=== PATIENT | female | born 1975 | race Caucasian/White ===

== ENCOUNTER 2025-04-18 21:45 | Inpatient (IN) ==
--- NOTE | 2025-04-18 22:03 | Emergency Department Note ---
History of Present Illness General Chief complaint: Abdominal Pain Stated complaint: ABDOMINAL PAIN Time Seen by Provider: 04/18/25 21:52 History of Present Illness Maximum Pain Intensity: 9 This is a 49-year-old female presenting to the emergency department for evaluation of upper abdominal pain radiating into her back. The pain is primarily on the right side and began shortly after having dinner this evening. 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 She had steak, corn, and baked beans. She began having pain within 30 minutes and rates the discomfort at 9/10. She does not have a history of abdominal surgery. No fevers or chills. No chest pain, chest tightness, shortness of breath. She denies chance of . Home Medications Medication Instructions Recorded Confirmed Type Lactobacillus acidophilus 10 10,000 mmu cells PO DAILY 04/18/25 04/18/25 History billion cell capsule (Probiotic) aspirin 81 mg tablet,delayed 81 mg PO DAILY 04/18/25 04/18/25 History release ferrous sulfate 325 mg (65 mg 325 mg PO DAILY 04/18/25 04/18/25 History iron) tablet (iron) sertraline 50 mg tablet 50 mg PO DAILY 04/18/25 04/18/25 History Allergies Allergy/AdvReac Type Severity Reaction Status Date / Time No Known Allergies Allergy Unknown Verified 04/18/25 22:57 Past Med/Surg History Problem List (Updated 04/19/25 @ 11:25 by Brie Vickers PA-C) Abdominal pain (Acute) SBO (small bowel obstruction) (Acute) No chronic diseases present History of DVT (deep vein thrombosis) Medical History (Updated 04/19/25 @ 11:25 by Brie Vickers PA-C) 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 Social History Smoking Status: Current some day smoker Tobacco Type: Cigarettes Preferred Language: Faroese Feels Safe at Home: Yes Review of Systems A total of 10 systems reviewed and were otherwise negative Physical Exam Vital Signs Vital Signs - 24 hr 04/18/25 21:46 04/18/25 21:48 04/18/25 21:57 Temperature 36.6 C Temperature Source Temporal Artery Scan Pulse Rate 113 H Pulse Rate [Right Brachial] 100 H Pulse Rhythm Regular Pulse Rhythm [Right Brachial] Regular Pulse Strength Normal Pulse Strength [Right Brachial] Normal Respiratory Rate 19 18 Respiratory Effort / Characteristics Non-Labored Non-Labored Spontaneous Respiratory Depth Normal Normal Respiratory Pattern Regular Regular Blood Pressure 114/69 Blood Pressure [Right Arm] 127/81 Blood Pressure Mean 84 Blood Pressure Mean [Right Arm] 96 Blood Pressure Position Sitting Blood Pressure Position [Right Arm] Lying Pulse Oximetry 98 100 95 Oxygen Delivery Method Room Air Room Air Room Air Sepsis Recent Fever Within 48 Hours No Sepsis New/Unexplained Change in Mental Status N/A Sepsis Action Taken by Nursing No Action Required 04/18/25 22:03 04/19/25 01:50 04/19/25 03:06 Temperature Temperature Source Pulse Rate 101 H Pulse Rate [Right Brachial] 99 H 76 Pulse Rhythm Pulse Rhythm [Right Brachial] Regular Regular Pulse Strength Pulse Strength [Right Brachial] Normal Normal Respiratory Rate 18 18 Respiratory Effort / Characteristics Non-Labored Spontaneous Non-Labored Spontaneous Respiratory Depth Normal Normal Respiratory Pattern Blood Pressure Blood Pressure [Right Arm] 118/64 94/56 L Blood Pressure Mean Blood Pressure Mean [Right Arm] 82 68 Blood Pressure Position Blood Pressure Position [Right Arm] Pulse Oximetry 100 100 Oxygen Delivery Method Room Air Room Air Sepsis Recent Fever Within 48 Hours Sepsis New/Unexplained Change in Mental Status Sepsis Action Taken by Nursing VITALS: Vitals are noted on the nurse's note and reviewed by myself. Vital signs stable. GENERAL: Well-developed, well-nourished, white female who is pleasant but appears very uncomfortable. She is tearful and holding her right side abdomen with her right hand. HEAD: Normocephalic atraumatic. NECK: Supple without nuchal rigidity. No lymphadenopathy. No thyromegaly. Cervical spine is nontender. HEART: Regular rate and rhythm without murmurs gallops or rubs. LUNGS: Clear to auscultation bilaterally without wheezes, rales or rhonchi. No retractions or accessory muscle use. ABDOMEN: Positive normal bowel sounds x 4. Soft, with reproducible tenderness to the right mid abdomen. No rebound or guarding. No CVA tenderness. MUSCULOSKELETAL: No muscle atrophy, erythema, or edema noted. Full range of motion in all extremities. No tenderness to palpation. NEURO: Patient was alert and oriented to person place and time. CN II through XII grossly intact. No focal neurological deficits. GCS 15. SKIN: The skin was without rashes, erythema, edema, or bruising. Capillary refill less than 2 seconds. Course Administered Medications Aspirin (Aspirin 81 Mg Ectab) 81 mg PO DAILY [facility] Stop: 05/19/25 09:24 Last Admin: 04/19/25 10:55 Dose: 81 mg Documented By: OUSMANE Enoxaparin Sodium (Enoxaparin Inj 40 Mg/0.4 Ml Syr) 40 mg SQ Q24H NEFTALI Stop: 05/19/25 09:24 Last Admin: 04/19/25 10:55 Dose: 40 mg Documented By: OUSMANE Ferrous Sulfate (Ferrous Sulfate 325 Mg Tab) 325 mg PO DAILY [facility] Stop: 05/19/25 09:38 Last Admin: 04/19/25 10:54 Dose: 325 mg Documented By: OUSMANE Lactated Ringer's (Lr) 1,000 mls @ 125 mls/hr IV .Q8H NEFTALI Stop: 04/22/25 09:24 Last Admin: 04/19/25 13:16 Dose: 125 mls/hr Documented By: SARA Acetaminophen (Ofirmev) 1,000 mg in 100 mls @ 400 mls/hr IV Q8H PRN PRN Reason: Pain or Fever Stop: 04/22/25 09:24 Last Infusion: 04/19/25 13:32 Dose: Infused Documented By: Admin: 04/19/25 13:17 Dose: 400 mls/hr Documented By: SARA Sertraline HCl (Sertraline Hcl 50 Mg Tablet) 50 mg PO DAILY [facility] Stop: 05/19/25 09:24 Last Admin: 04/19/25 10:55 Dose: 50 mg Documented By: OUSMANE Discontinued Medications Sodium Chloride (Nss) 1,000 mls @ 999 mls/hr IV .Q1H1M ONE Stop: 04/18/25 22:57 Last Infusion: 04/19/25 00:06 Dose: Infused Documented By: Admin: 04/18/25 22:32 Dose: 999 mls/hr Documented By: RADHA Acetaminophen (Ofirmev) 1,000 mg in 100 mls @ 400 mls/hr IV NOW STA Stop: 04/18/25 22:11 Last Infusion: 04/18/25 22:59 Dose: Infused Documented By: Admin: 04/18/25 22:32 Dose: 400 mls/hr Documented By: RADHA Potassium Chloride (K Faraz / Wtr) 10 meq in 100 mls @ 100 mls/hr IV Q1H NEFTALI Stop: 04/19/25 07:14 Last Infusion: 04/19/25 08:48 Dose: Infused Documented By: Admin: 04/19/25 07:38 Dose: 100 mls/hr Documented By: Infusion: 04/19/25 07:24 Dose: Infused Documented By: Admin: 04/19/25 06:19 Dose: 100 mls/hr Documented By: Infusion: 04/19/25 06:19 Dose: Infused Documented By: Admin: 04/19/25 05:26 Dose: 100 mls/hr Documented By: SELINA Promethazine HCl (Phenergan) 12.5 mg in 50.5 mls @ 202 mls/hr IV NOW STA Stop: 04/19/25 07:57 Last Infusion: 04/19/25 08:32 Dose: Infused Documented By: Admin: 04/19/25 07:53 Dose: 202 mls/hr Documented By: OUSMANE Ioversol (Optiray 320 100ml) 93 ml IV ONCE ONE Stop: 04/18/25 22:30 Last Admin: 04/18/25 22:29 Dose: 93 ml Documented By: KELVIN Morphine Sulfate (Morphine Sulfate 4 Mg/Ml 1 Ml Carp\Vial) 4 mg IV Q30M PRN PRN Reason: Pain Stop: 05/02/25 21:56 Last Admin: 04/19/25 07:56 Dose: 4 mg Documented By: Admin: 04/18/25 22:08 Dose: 4 mg Documented By: RADHA Ondansetron HCl (Ondansetron Inj 2 Mg/Ml 2 Ml Vial) 4 mg IV NOW STA Stop: 04/18/25 21:58 Last Admin: 04/18/25 22:08 Dose: 4 mg Documented By: RADHA Medical Decision Making Differential Diagnosis Differential diagnosis: Etiologies such as biliary colic, cholecystitis, hepatitis, pancreatitis, cardiac disease, pancreatitis, gastritis, peptic ulcer disease, appendicitis, cystitis, diverticulitis, mesenteric ischemia, inflammatory bowel disease, ileus, bowel obstruction, testicular/adnexal torsion, aortic pathology, shingles, as well as others were considered Laboratory Data 04/19/25 09:54 04/19/25 09:54 Lab Results 04/18/25 Range/Units 22:04 WBC 9.99 (4.8-10.8) K/ul RBC 4.57 (4.20-5.40) M/uL Hgb 13.4 (12.0-16.0) g/dl Hct 40.2 (37.0-47.0) % MCV 88.0 (80.0-100.0) fL MCH 29.3 (25.0-34.0) pg MCHC 33.3 (32.0-36.0) g/dL RDW Std Deviation 40.1 (36.4-46.3) fL RDW Coeff of Lupe 12.4 (11.5-14.5) % Plt Count 320 (130-400) K/uL MPV 9.5 (9.4-12.4) fL Immature Gran % (Auto) 0.3 % Neut % (Auto) 85.0 % Lymph % (Auto) 9.6 % [place] % (Auto) 4.6 % Eos % (Auto) 0.3 % Baso % (Auto) 0.2 % Neut # (Auto) 8.49 H (1.40-6.50) K/uL Lymph # (Auto) 0.96 L (1.20-3.40) K/uL [place] # (Auto) 0.46 (0.11-0.59) K/uL Eos # (Auto) 0.03 (0.00-0.50) K/uL Baso # (Auto) 0.02 (0.00-0.20) K/uL Immature Gran # (Auto) 0.03 (0.01-0.20) K/uL PT 10.3 (9.0-12.0) Seconds INR 0.9 (0.9-1.1) APTT 26 (21-31) Seconds PTT Ratio 1.0 Sodium 137 (136-145) mmol/L Potassium 3.3 L (3.5-5.1) mmol/L Chloride 103 (98-107) mmol/L Carbon Dioxide 26 (21-32) mmol/L Anion Gap 8 (3-11) BUN 17 (6-23) mg/dl Creatinine 0.74 (0.6-1.2) mg/dl Est Cr Clr Drug Dosing 83.5 ml/min eGFR 100.36 BUN/Creatinine Ratio 23.0 H (10-20) Glucose 122 H (70-99(Fasting)) mg/dl Calcium 9.3 (8.6-10.3) mg/dl Magnesium 2.0 (1.7-2.4) mg/dl Total Bilirubin 0.8 (0.2-1.0) mg/dl AST 20 (13-39) U/L ALT 10 (7-52) U/L Alkaline Phosphatase 73 (34-104) U/L Troponin I High Sens < 2.3 (0-14) pg/ml Total Protein 7.6 (6.0-8.3) gm/dl Albumin 4.6 (3.4-5.0) gm/dl Globulin 3.0 (2.5-4.0) gm/dl Albumin/Globulin Ratio 1.5 (0.9-2) Lipase 20 (11-82) U/L HCG, Qual Negative (Negative) Imaging Data Radiologist's Impression: Abdomen/Pelvis CT 04/18/25 21:57 Exam(s): CT ABDOMEN + PELVIS With Contrast IV Amt: 93 cc opti 320 EXAM: CT Abdomen and Pelvis With Intravenous Contrast CLINICAL HISTORY: right side abdominal pain. TECHNIQUE: Axial computed tomography images of the abdomen and pelvis with intravenous contrast. CTDI is 9.03 mGy and DLP is 432.21 mGy-cm. Automated exposure control was utilized for the study. A dose lowering technique was utilized adhering to the principles of ALARA. CONTRAST: Patient received 93 cc opti 320 of IV contrast COMPARISON: No relevant prior studies available. FINDINGS: Lung bases: Unremarkable. No mass. No consolidation. ABDOMEN: Liver: Unremarkable. No mass. Gallbladder and bile ducts: Unremarkable. No calcified stones. No ductal dilation. Pancreas: Unremarkable. No mass. No ductal dilation. Spleen: Unremarkable. No splenomegaly. Adrenals: Unremarkable. No mass. Kidneys and ureters: Unremarkable. No solid mass. No hydronephrosis. Stomach and bowel: Abnormal fluid and gas dilated small bowel loops in the pelvis, with subtle kinking around the central location within the midline pelvis (series 2; images 62-65). Prominent stool burden in the right colon. Only mild stool burden in the left colon. PELVIS: Appendix: The appendix is normal in caliber posterior to the cecum. Bladder: Unremarkable. No mass. Reproductive: There are multiple adnexal cysts noted bilaterally. The largest adnexal cyst on the left measures 3.6 x 3.7 cm. ABDOMEN and PELVIS: Intraperitoneal space: Free fluid in the pelvis is noted. No loculation. No free air. Bones/joints: No acute fracture. No dislocation. Soft tissues: Unremarkable. Vasculature: There is long segment venous stents extending throughout the iliac arteries, into the IVC and a kissing fashion. There is also a stent from the infrarenal IVC through the kissing stents. The aorta and iliac arteries are patent. No abdominal aortic aneurysm. Lymph nodes: Unremarkable. No enlarged lymph nodes. IMPRESSION: 1. Abnormal fluid and gas dilated small bowel loops in the pelvis, with subtle kinking around the central location within the midline pelvis (series 2; images 62-65). The appearance is concerning for distal small bowel obstruction, presumably from adhesions or a potential internal hernia. No pneumatosis or pneumoperitoneum. 2. Free fluid in the pelvis is noted. No loculation. This is presumably reactive from the small bowel process. 3. There are multiple adnexal cysts noted bilaterally. The largest adnexal cyst on the left measures 3.6 x 3.7 cm. This is a presumed incidental finding. Electronically signed by: Jonas Murcia MD 04/18/25 23:54 PM Gallbladder Ultrasound 04/18/25 21:57 Exam(s): US GALLBLADDER EXAM: US Abdomen Limited, Gallbladder CLINICAL HISTORY: upper and RUQ pain. TECHNIQUE: Real-time ultrasound of the right upper quadrant with image documentation. COMPARISON: CTA abdomen and pelvis with contrast performed 1022 hours FINDINGS: Liver: Trace perihepatic fluid. Incidental simple cyst involving the left lobe of the liver measuring six mm. No internal architecture. The liver is slightly hyperechoic. The liver measures 14.8 cm. The portal vein is patent with flow directed towards the liver. Gallbladder: Minimal echogenic sludge noted in the gallbladder. No gallstones. The gallbladder wall measures up to 1.9 mm. Evaluation for sonographic Mullins's sign is not possible secondary to reported medication status. Common bile duct: The common bile duct measures 3 mm. No stones. No dilation. Pancreas: Unremarkable as visualized. Right kidney: Right renal pelviectasis. No nephrolithiasis or hydronephrosis. IMPRESSION: 1. Trace perihepatic fluid. Please see the CT report of the abdomen performed earlier for further details. 2. Trace sludge in the gallbladder. No gallstones. No gallbladder wall thickening. Pericholecystic fluid is presumed extension from regional perihepatic fluid. No biliary dilatation. Electronically signed by: Jonas Murcia MD 04/19/25 00:06 AM MDM Narrative Physical exam and history were performed. Nursing notes, EMR, and Medication List were personally reviewed. No social concerns were identified as barriers to patients care. History was provided by the Patient and who is at bedside. Patient appears to have abdominal pain bringing her to the ER. Symptoms have been ongoing for about 2-1/2 hours. She is primarily with right-sided discomfort. She appears very uncomfortable. IV access was established and labs were obtained. She was hydrated normal saline and given IV Tylenol and IV morphine for pain control, and IV Zofran for nausea. Patient was sent to CT scan and ultrasound for further evaluation of symptoms. Patient's blood work is as above and was reviewed. She does not have a significant elevated white blood cell count, gross anemia, bandemia, or significant electrolyte imbalance. Lipase and transaminases not diagnostic. Magnesium normal. CT scan and ultrasound were independently reviewed by myself and radiology. Ultrasound does not show distinct biliary etiology of her symptoms. CT is more concerning, as it seems to reveal a small bowel obstruction. Escalation of care was considered, and felt to be necessary. On reevaluation the patient's pain is much better and she seems much more comfortable. Case was discussed with the on-call hospitalist team, who agreed to evaluate the patient here in the ER. Please see their dictation for further patient course, plan, disposition. The chart was completed utilizing [employer] Speech Voice Recognition Software. Grammatical errors, random word insertions, pronoun errors, and incomplete sentences are an occasional consequence of this system due to software limitations, ambient noise, and hardware issues. Any formal questions or concerns about the content, text, or information contained within the body of this dictation should be directly addressed to the provider for clarification. Impression & Plan SBO (small bowel obstruction), Abdominal pain Discharge Plan Visit Data Chief Complaint: Abdominal Pain Stated Complaint: ABDOMINAL PAIN ED Provider: Mark Larsen ED Midlevel Provider: Pratik Stone Discharge Problem: SBO (small bowel obstruction), Abdominal pain Patient Disposition: Admitted As Inpatient Condition: Good Discharge Instructions Interventions: ED Discharge Assessment Last Done: 04/19/25 13:31
[2025-04-18] MEDS: MoRPHine SULFATE 4 MG/ML 1 ML CARP\\VIAL IV PRN (22:08)
[2025-04-18] MEDS: ONDANSETRON INJ 2 MG/ML 2 ML VIAL IV STA (22:08)
[2025-04-18 22:16] LABS: Hematocrit (blood only) 40.2 % (37.0-47.0); Hemoglobin 13.4 g/dl (12.0-16.0); Immature Granulocytes # (auto) 0.03 K/uL (0.01-0.20); Immature Granulocytes % (auto) 0.3 %; Mean Corpuscular Hemoglobin 29.3 pg (25.0-34.0); Mean Corpuscular Volume 88.0 fL (80.0-100.0); Platelet Count 320 K/uL (130-400); RDW Standard Deviation 40.1 fL (36.4-46.3); Red Blood Count 4.57 M/uL (4.20-5.40); White Blood Count 9.99 K/ul (4.8-10.8)
[2025-04-18] MEDS: OPTIRAY 320 100ml IV ONE (22:29)
[2025-04-18] MEDS: ACETAMINOPHEN 1,000 MG/100 ML VIAL IV STA (22:32)
[2025-04-18] MEDS: SODIUM CHLORIDE 0.9% 1,000 ML IV ONE (22:32)
[2025-04-18 22:36] LABS: Alanine Aminotransferase 10 U/L (7-52); Albumin Globulin Ratio 1.5 (0.9-2); Alkaline Phosphatase 73 U/L (34-104); Anion Gap 8 (3-11); Bilirubin,Total 0.8 mg/dl (0.2-1.0); Blood Urea Nitrogen 17 mg/dl (6-23); Calcium 9.3 mg/dl (8.6-10.3); Carbon Dioxide 26 mmol/L (21-32); Chloride 103 mmol/L (98-107); Creatinine Clr Calc Pharmacy 83.5 ml/min; Globulin 3.0 gm/dl (2.5-4.0); Glucose 122 mg/dl (70-99(Fasting)); Lipase 20 U/L (11-82); Magnesium 2.0 mg/dl (1.7-2.4); Potassium 3.3 mmol/L (3.5-5.1); Sodium 137 mmol/L (136-145); Total Protein 7.6 gm/dl (6.0-8.3)
[2025-04-18 22:50] LABS: Pregnancy Test, Serum Negative (Negative)
[2025-04-18 23:25] LABS: INR 0.9 (0.9-1.1); Partial Thromboplastin Time 26 Seconds (21-31); Prothrombin Time 10.3 Seconds (9.0-12.0)
--- NOTE | 2025-04-18 23:55 | CT Scan Report ---
Exam(s): CT ABDOMEN + PELVIS With Contrast IV Amt: 93 cc opti 320 EXAM: CT Abdomen and Pelvis With Intravenous Contrast CLINICAL HISTORY: right side abdominal pain. TECHNIQUE: Axial computed tomography images of the abdomen and pelvis with intravenous contrast. CTDI is 9.03 mGy and DLP is 432.21 mGy-cm. Automated exposure control was utilized for the study. A dose lowering technique was utilized adhering to the principles of ALARA. CONTRAST: Patient received 93 cc opti 320 of IV contrast COMPARISON: No relevant prior studies available. FINDINGS: Lung bases: Unremarkable. No mass. No consolidation. ABDOMEN: Liver: Unremarkable. No mass. Gallbladder and bile ducts: Unremarkable. No calcified stones. No ductal dilation. Pancreas: Unremarkable. No mass. No ductal dilation. Spleen: Unremarkable. No splenomegaly. Adrenals: Unremarkable. No mass. Kidneys and ureters: Unremarkable. No solid mass. No hydronephrosis. Stomach and bowel: Abnormal fluid and gas dilated small bowel loops in the pelvis, with subtle kinking around the central location within the midline pelvis (series 2; images 62-65). Prominent stool burden in the right colon. Only mild stool burden in the left colon. PELVIS: Appendix: The appendix is normal in caliber posterior to the cecum. Bladder: Unremarkable. No mass. Reproductive: There are multiple adnexal cysts noted bilaterally. The largest adnexal cyst on the left measures 3.6 x 3.7 cm. ABDOMEN and PELVIS: Intraperitoneal space: Free fluid in the pelvis is noted. No loculation. No free air. Bones/joints: No acute fracture. No dislocation. Soft tissues: Unremarkable. Vasculature: There is long segment venous stents extending throughout the iliac arteries, into the IVC and a kissing fashion. There is also a stent from the infrarenal IVC through the kissing stents. The aorta and iliac arteries are patent. No abdominal aortic aneurysm. Lymph nodes: Unremarkable. No enlarged lymph nodes. IMPRESSION: 1. Abnormal fluid and gas dilated small bowel loops in the pelvis, with subtle kinking around the central location within the midline pelvis (series 2; images 62-65). The appearance is concerning for distal small bowel obstruction, presumably from adhesions or a potential internal hernia. No pneumatosis or pneumoperitoneum. 2. Free fluid in the pelvis is noted. No loculation. This is presumably reactive from the small bowel process. 3. There are multiple adnexal cysts noted bilaterally. The largest adnexal cyst on the left measures 3.6 x 3.7 cm. This is a presumed incidental finding. Electronically signed by: Jonas Murcia MD 04/18/25 23:54 PM
--- NOTE | 2025-04-19 00:07 | Ultrasound Report ---
Exam(s): US GALLBLADDER EXAM: US Abdomen Limited, Gallbladder CLINICAL HISTORY: upper and RUQ pain. TECHNIQUE: Real-time ultrasound of the right upper quadrant with image documentation. COMPARISON: CTA abdomen and pelvis with contrast performed 1022 hours FINDINGS: Liver: Trace perihepatic fluid. Incidental simple cyst involving the left lobe of the liver measuring six mm. No internal architecture. The liver is slightly hyperechoic. The liver measures 14.8 cm. The portal vein is patent with flow directed towards the liver. Gallbladder: Minimal echogenic sludge noted in the gallbladder. No gallstones. The gallbladder wall measures up to 1.9 mm. Evaluation for sonographic Mullins's sign is not possible secondary to reported medication status. Common bile duct: The common bile duct measures 3 mm. No stones. No dilation. Pancreas: Unremarkable as visualized. Right kidney: Right renal pelviectasis. No nephrolithiasis or hydronephrosis. IMPRESSION: 1. Trace perihepatic fluid. Please see the CT report of the abdomen performed earlier for further details. 2. Trace sludge in the gallbladder. No gallstones. No gallbladder wall thickening. Pericholecystic fluid is presumed extension from regional perihepatic fluid. No biliary dilatation. Electronically signed by: Jonas Murcia MD 04/19/25 00:06 AM
--- NOTE | 2025-04-19 04:59 | History & Physical Report ---
Date of Service April 19, 2025 Assessment & Plan (1) SBO (small bowel obstruction): Plan: 49-year-old female with past medical history significant for anxiety history of DVT, history of IVC thrombosis, history of depression presents with abdominal pain since yesterday evening and found to have bowel obstruction. Patient states since yesterday evening having severe abdominal pain all over the abdomen. Associated with nausea. Denies any vomiting. Last bowel movement was couple of days ago. But states passing gas. Denies any chest pain or shortness of breath. No cough. No fevers. No headache. No runny nose or sore throat. Micturating okay. Hemodynamics okay. 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 Patient states since yesterday evening having severe abdominal pain all over the abdom en. Associated with nausea. Denies any vomiting. Last bowel movement was couple of days ago. But states passing gas. Denies any chest pain or shortness of breath. No cough. No fevers. No headache. No runny nose or sore throat. Micturating okay. Hemodynamics okay. Past medical history. As mentioned above Past surgical history. Colonoscopy. Breast implants. Social history. . Quit smoking 2012. Smokes 0.5 pack a day for 17 years. Alcohol once a week. No drug use. Family history. Paternal grandfather had diabetes. Hypertension. Father had heart disorder. Hypertension. Allergies Allergy/AdvReac Type Severity Reaction Status Date / Time No Known Allergies Allergy Unknown Verified 04/18/25 22:57 Home Medications Medication Instructions Recorded Confirmed Type Lactobacillus acidophilus 10 10,000 mmu cells PO DAILY 04/18/25 04/18/25 History billion cell capsule (Probiotic) aspirin 81 mg tablet,delayed 81 mg PO DAILY 04/18/25 04/18/25 History release ferrous sulfate 325 mg (65 mg 325 mg PO DAILY 04/18/25 04/18/25 History iron) tablet (iron) sertraline 50 mg tablet 50 mg PO DAILY 04/18/25 04/18/25 History Past Med/Surg History Problem List (Updated 04/19/25 @ 01:05 by Pratik Stone PA-C) Abdominal pain (Acute) SBO (small bowel obstruction) (Acute) No chronic diseases present History of DVT (deep vein thrombosis) Social History Smoking Status: Current some day smoker Tobacco Type: Cigarettes Preferred Language: Kazakh Feels Safe at Home: Yes Review of Systems Review of Systems: All systems reviewed & are unremarkable except as noted in HPI & below Physical Exam Physical Exam: General- Not in distress Head- atraumatic Eyes- PERRL. ENT- oropharynx clear Neck- supple, no JVD. Lungs- clear to auscultation no wheezing or crackles Heart- regular rate and rhythm; no murmur, no gallop. Abdomen-sluggish bowel sounds, soft, diffuse tender, mild guarding, no distension. Extremities- no pretibial edema, no erythema seen. Neuro- alert, oriented PERRL, no facial palsy; no dysarthria; moves extremities Results & Data Results & Data Vital Signs (Past 12 Hours) Vital Signs Temp Pulse Pulse Resp BP BP Pulse Ox 04/19/25 03:06 76 18 94/56 L 100 04/19/25 01:50 99 H 18 118/64 100 04/18/25 22:03 101 H 04/18/25 21:57 95 04/18/25 21:48 36.6 C 113 H 18 114/69 100 04/18/25 21:46 100 H 19 127/81 98 O2 Del Method 04/19/25 03:06 Room Air 04/19/25 01:50 Room Air 04/18/25 22:03 04/18/25 21:57 Room Air 04/18/25 21:48 Room Air 04/18/25 21:46 Room Air Diagnostic Findings Laboratory Results WBC 9.99 K/ul (4.8-10.8) 04/18/25 22:04 RBC 4.57 M/uL (4.20-5.40) 04/18/25 22:04 Hgb 13.4 g/dl (12.0-16.0) 04/18/25 22:04 Hct 40.2 % (37.0-47.0) 04/18/25 22:04 MCV 88.0 fL (80.0-100.0) 04/18/25 22:04 MCH 29.3 pg (25.0-34.0) 04/18/25 22:04 MCHC 33.3 g/dL (32.0-36.0) 04/18/25 22:04 RDW Std Deviation 40.1 fL (36.4-46.3) 04/18/25 22:04 RDW Coeff of Lupe 12.4 % (11.5-14.5) 04/18/25 22:04 Plt Count 320 K/uL (130-400) 04/18/25 22:04 MPV 9.5 fL (9.4-12.4) 04/18/25 22:04 Immature Gran % (Auto) 0.3 % 04/18/25 22:04 Neut % (Auto) 85.0 % 04/18/25 22:04 Lymph % (Auto) 9.6 % 04/18/25 22:04 [place] % (Auto) 4.6 % 04/18/25 22:04 Eos % (Auto) 0.3 % 04/18/25 22:04 Baso % (Auto) 0.2 % 04/18/25 22:04 Neut # (Auto) 8.49 K/uL (1.40-6.50) H 04/18/25 22:04 Lymph # (Auto) 0.96 K/uL (1.20-3.40) L 04/18/25 22:04 [place] # (Auto) 0.46 K/uL (0.11-0.59) 04/18/25 22:04 Eos # (Auto) 0.03 K/uL (0.00-0.50) 04/18/25 22:04 Baso # (Auto) 0.02 K/uL (0.00-0.20) 04/18/25 22:04 Immature Gran # (Auto) 0.03 K/uL (0.01-0.20) 04/18/25 22:04 PT 10.3 Seconds (9.0-12.0) 04/18/25 22:04 INR 0.9 (0.9-1.1) 04/18/25 22:04 APTT 26 Seconds (21-31) 04/18/25 22:04 PTT Ratio 1.0 04/18/25 22:04 Sodium 137 mmol/L (136-145) 04/18/25 22:04 Potassium 3.3 mmol/L (3.5-5.1) L 04/18/25 22:04 Chloride 103 mmol/L (98-107) 04/18/25 22:04 Carbon Dioxide 26 mmol/L (21-32) 04/18/25 22:04 Anion Gap 8 (3-11) 04/18/25 22:04 BUN 17 mg/dl (6-23) 04/18/25 22:04 Creatinine 0.74 mg/dl (0.6-1.2) 04/18/25 22:04 Est Cr Clr Drug Dosing 83.5 ml/min 04/18/25 22:04 eGFR 100.36 04/18/25 22:04 BUN/Creatinine Ratio 23.0 (10-20) H 04/18/25 22:04 Glucose 122 mg/dl (70-99(Fasting)) H 04/18/25 22:04 Calcium 9.3 mg/dl (8.6-10.3) 04/18/25 22:04 Magnesium 2.0 mg/dl (1.7-2.4) 04/18/25 22:04 Total Bilirubin 0.8 mg/dl (0.2-1.0) 04/18/25 22:04 AST 20 U/L (13-39) 04/18/25 22:04 ALT 10 U/L (7-52) 04/18/25 22:04 Alkaline Phosphatase 73 U/L (34-104) 04/18/25 22:04 Troponin I High Sens < 2.3 pg/ml (0-14) 04/18/25 22:04 Total Protein 7.6 gm/dl (6.0-8.3) 04/18/25 22:04 Albumin 4.6 gm/dl (3.4-5.0) 04/18/25 22:04 Globulin 3.0 gm/dl (2.5-4.0) 04/18/25 22:04 Albumin/Globulin Ratio 1.5 (0.9-2) 04/18/25 22:04 Lipase 20 U/L (11-82) 04/18/25 22:04 HCG, Qual Negative (Negative) 04/18/25 22:04 Impressions Abdomen/Pelvis CT 04/18/25 21:57 Exam(s): CT ABDOMEN + PELVIS With Contrast IV Amt: 93 cc opti 320 EXAM: CT Abdomen and Pelvis With Intravenous Contrast CLINICAL HISTORY: right side abdominal pain. TECHNIQUE: Axial computed tomography images of the abdomen and pelvis with intravenous contrast. CTDI is 9.03 mGy and DLP is 432.21 mGy-cm. Automated exposure control was utilized for the study. A dose lowering technique was utilized adhering to the principles of ALARA. CONTRAST: Patient received 93 cc opti 320 of IV contrast COMPARISON: No relevant prior studies available. FINDINGS: Lung bases: Unremarkable. No mass. No consolidation. ABDOMEN: Liver: Unremarkable. No mass. Gallbladder and bile ducts: Unremarkable. No calcified stones. No ductal dilation. Pancreas: Unremarkable. No mass. No ductal dilation. Spleen: Unremarkable. No splenomegaly. Adrenals: Unremarkable. No mass. Kidneys and ureters: Unremarkable. No solid mass. No hydronephrosis. Stomach and bowel: Abnormal fluid and gas dilated small bowel loops in the pelvis, with subtle kinking around the central location within the midline pelvis (series 2; images 62-65). Prominent stool burden in the right colon. Only mild stool burden in the left colon. PELVIS: Appendix: The appendix is normal in caliber posterior to the cecum. Bladder: Unremarkable. No mass. Reproductive: There are multiple adnexal cysts noted bilaterally. The largest adnexal cyst on the left measures 3.6 x 3.7 cm. ABDOMEN and PELVIS: Intraperitoneal space: Free fluid in the pelvis is noted. No loculation. No free air. Bones/joints: No acute fracture. No dislocation. Soft tissues: Unremarkable. Vasculature: There is long segment venous stents extending throughout the iliac arteries, into the IVC and a kissing fashion. There is also a stent from the infrarenal IVC through the kissing stents. The aorta and iliac arteries are patent. No abdominal aortic aneurysm. Lymph nodes: Unremarkable. No enlarged lymph nodes. IMPRESSION: 1. Abnormal fluid and gas dilated small bowel loops in the pelvis, with subtle kinking around the central location within the midline pelvis (series 2; images 62-65). The appearance is concerning for distal small bowel obstruction, presumably from adhesions or a potential internal hernia. No pneumatosis or pneumoperitoneum. 2. Free fluid in the pelvis is noted. No loculation. This is presumably reactive from the small bowel process. 3. There are multiple adnexal cysts noted bilaterally. The largest adnexal cyst on the left measures 3.6 x 3.7 cm. This is a presumed incidental finding. Electronically signed by: Jonas Murcia MD 04/18/25 23:54 PM Gallbladder Ultrasound 04/18/25 21:57 Exam(s): US GALLBLADDER EXAM: US Abdomen Limited, Gallbladder CLINICAL HISTORY: upper and RUQ pain. TECHNIQUE: Real-time ultrasound of the right upper quadrant with image documentation. COMPARISON: CTA abdomen and pelvis with contrast performed 1022 hours FINDINGS: Liver: Trace perihepatic fluid. Incidental simple cyst involving the left lobe of the liver measuring six mm. No internal architecture. The liver is slightly hyperechoic. The liver measures 14.8 cm. The portal vein is patent with flow directed towards the liver. Gallbladder: Minimal echogenic sludge noted in the gallbladder. No gallstones. The gallbladder wall measures up to 1.9 mm. Evaluation for sonographic Mullins's sign is not possible secondary to reported medication status. Common bile duct: The common bile duct measures 3 mm. No stones. No dilation. Pancreas: Unremarkable as visualized. Right kidney: Right renal pelviectasis. No nephrolithiasis or hydronephrosis. IMPRESSION: 1. Trace perihepatic fluid. Please see the CT report of the abdomen performed earlier for further details. 2. Trace sludge in the gallbladder. No gallstones. No gallbladder wall thickening. Pericholecystic fluid is presumed extension from regional perihepatic fluid. No biliary dilatation. Electronically signed by: Jonas Murcia MD 04/19/25 00:06 AM ECG Additional Comments: ECG sinus tachycardia with short TN at rate of 103. Nonspecific T wave abnormality in anterior leads. QTc 466 Code Status & VTE Plan VTE Prophylaxis Plan VTE Prophylaxis will be ordered: Yes
[2025-04-19] MEDS: POTASSIUM CHLORIDE / WTR 10 MEQ/100 ML PLCT IV SCH (05:26)
[2025-04-19] MEDS: PROMETHAZINE 12.5 MG/50.5 ML BAG IV STA (07:53)
[2025-04-19] MEDS ORDERED: MoRPHine SULFATE 4 MG/ML 1 ML CARP\\VIAL IV PRN (09:25)
[2025-04-19] MEDS ORDERED: ONDANSETRON INJ 2 MG/ML 2 ML VIAL IV PRN (09:25)
[2025-04-19 10:14] LABS: Hematocrit (blood only) 33.5 % (37.0-47.0); Hemoglobin 11.1 g/dl (12.0-16.0); Immature Granulocytes # (auto) 0.02 K/uL (0.01-0.20); Immature Granulocytes % (auto) 0.3 %; Mean Corpuscular Hemoglobin 29.8 pg (25.0-34.0); Mean Corpuscular Volume 90.1 fL (80.0-100.0); Platelet Count 229 K/uL (130-400); RDW Standard Deviation 41.2 fL (36.4-46.3); Red Blood Count 3.72 M/uL (4.20-5.40); White Blood Count 7.21 K/ul (4.8-10.8)
[2025-04-19 10:31] LABS: Potassium 4.2 mmol/L (3.5-5.1)
--- NOTE | 2025-04-19 10:46 | Surgery Consultation ---
Date of Consultation April 19, 2025 Assessment & Plan (1) Abdominal pain: (2) SBO (small bowel obstruction): (3) History of DVT (deep vein thrombosis): 49 yo female with sudden onset of generalized abdominal pain increasing in severity with associated nausea. No prior abdominal surgery history. CT scan of abd/pelvis with IV contrast with differential of enteritis vs internal hernia causing SBO. CT scan personally reviewed with radiologist Dr. Raymundo. Ordered stat lactic acid which was normal at 0.4. Will closely monitor patients pain and vitals. If increase in pain or change in pain she may warrant diagnostic laparoscopy and potential ex lap pending findings. Continue NPO for bowel rest. IV fluids. Pain management. Continue medical management Dr. Britt has seen and examined patient, discussed above with patient. Supervising Physician Co-Signing Physician Notes I have seen and examined the patient personally and agree with the above assessment plan. In brief, she had sudden generalized abdominal pain beginning after eating yesterday evening. This was associated with nausea. She has continued to pass gas throughout the night. Currently her pain is somewhat improved although still present. She has no fever or chills. White blood cell count is normal. Lactic acid is 0.4. CT scan demonstrates enteritis versus possible internal hernia causing small bowel obstruction. We did review the scan personally with the radiologist, Dr. Raymundo, who confirmed the CT finding of enteritis/inflammation versus internal hernia. As she has no signs of distress or extremis currently and her labs are all normal with no fever, we will observe for now. We will follow her closely with serial abdominal exams and recheck labs. If she were to worsen or her labs were to begin to elevate or she were to develop a fever, she will require exploratory laparoscopy possible laparotomy. She understands and is agreeable with this plan. History of Present Illness Reason for Consultation: SBO Requesting Physician: Dr. Aubrey MD Attending Physician: Gissell Moody MD History of Present Illness 49 year- old female who presented to ED with complaint of sudden onset of abdominal pain yesterday evening at 6:30 pm after eating steak , beans, and corn in which pain increased and did not improve. No similar pain in past. No vomiting but slightly nauseous. Denies fever, chills, or sweats. Last bowel movement was a few days ago. Normally bowel movement every other day. No issues with constipation. Passing gas last night since being in ED. No-one else at home with similar symptoms. States pain was generalized throughout abdomen. No history of prior abdominal surgeries. History of DVT and IVC thrombosis after taking Clomid with venous stent placement. Not on any blood thinning agents other than baby aspirin. Currently pain is better but just had 4 mg of Morphine around 9 am. No bowel movement. No n,v. Allergies Allergy/AdvReac Type Severity Reaction Status Date / Time No Known Allergies Allergy Unknown Verified 04/18/25 22:57 Home Medications Medication Instructions Recorded Confirmed Type Lactobacillus acidophilus 10 10,000 mmu cells PO DAILY 04/18/25 04/18/25 History billion cell capsule (Probiotic) aspirin 81 mg tablet,delayed 81 mg PO DAILY 04/18/25 04/18/25 History release ferrous sulfate 325 mg (65 mg 325 mg PO DAILY 04/18/25 04/18/25 History iron) tablet (iron) sertraline 50 mg tablet 50 mg PO DAILY 04/18/25 04/18/25 History Patient History Medical History (Updated 04/19/25 @ 11:25 by Brie Vickers PA-C) 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 Social History Smoking Status: Current some day smoker Tobacco Type: Cigarettes Preferred Language: German Feels Safe at Home: Yes Review of Systems Review of Systems: All systems reviewed & are unremarkable except as noted in HPI & below Physical Exam Constitutional: WD/WN, vitals as above cooperative and comfortable; no acute distress and not ill appearing Respiratory: normal respiratory effort, lungs clear to auscultation Cardiovascular: Rate/Rhythm: regular rhythm and + tachycardic Heart Sounds: normal S1 and normal S2; no murmur Gastrointestinal (Abdomen): Inspection/Auscultation: abdomen normal to inspection; abdomen not distended Percussion/Palpation: + abdomen tender (generalized tenderness but more in the mid lower abdomen), + guarding (voluntary in mid lower abdomen and LLQ) and abdomen soft; abdomen not rigid and abdomen not firm Skin: no rashes, warm and dry Psychiatric: A+Ox3, euthymic affect Results & Data Vital Signs (Past 12 Hours) Vital Signs Pulse Pulse Resp BP Pulse Ox O2 Del Method 04/19/25 09:06 90 18 98/64 L 98 Room Air 04/19/25 08:09 88 07/31/25 05:00 92 H 16 103/66 100 Room Air 04/19/25 03:06 76 18 94/56 L 100 Room Air 04/19/25 01:50 99 H 18 118/64 100 Room Air Laboratory Results 04/19/25 04/19/25 04/18/25 Range/Units 11:02 09:54 22:04 WBC 7.21 9.99 (4.8-10.8) K/ul RBC 3.72 L 4.57 (4.20-5.40) M/uL Hgb 11.1 L 13.4 (12.0-16.0) g/dl Hct 33.5 L 40.2 (37.0-47.0) % MCV 90.1 88.0 (80.0-100.0) fL MCH 29.8 29.3 (25.0-34.0) pg MCHC 33.1 33.3 (32.0-36.0) g/dL RDW Std Deviation 41.2 40.1 (36.4-46.3) fL RDW Coeff of Lupe 12.6 12.4 (11.5-14.5) % Plt Count 229 320 (130-400) K/uL MPV 9.8 9.5 (9.4-12.4) fL Immature Gran % (Auto) 0.3 0.3 % Neut % (Auto) 80.0 85.0 % Lymph % (Auto) 15.3 9.6 % [place] % (Auto) 4.0 4.6 % Eos % (Auto) 0.1 0.3 % Baso % (Auto) 0.3 0.2 % Neut # (Auto) 5.77 8.49 H (1.40-6.50) K/uL Lymph # (Auto) 1.10 L 0.96 L (1.20-3.40) K/uL [place] # (Auto) 0.29 0.46 (0.11-0.59) K/uL Eos # (Auto) 0.01 0.03 (0.00-0.50) K/uL Baso # (Auto) 0.02 0.02 (0.00-0.20) K/uL Immature Gran # (Auto) 0.02 0.03 (0.01-0.20) K/uL PT 10.3 (9.0-12.0) Seconds INR 0.9 (0.9-1.1) APTT 26 (21-31) Seconds PTT Ratio 1.0 Sodium 135 L 137 (136-145) mmol/L Potassium 4.2 D 3.3 L (3.5-5.1) mmol/L Chloride 108 H 103 (98-107) mmol/L Carbon Dioxide 23 26 (21-32) mmol/L Anion Gap 4 8 (3-11) BUN 13 17 (6-23) mg/dl Creatinine 0.55 L 0.74 (0.6-1.2) mg/dl Est Cr Clr Drug Dosing 112.4 83.5 ml/min eGFR 113.70 100.36 BUN/Creatinine Ratio 23.6 H 23.0 H (10-20) Glucose 94 122 H (70-99(Fasting)) mg/dl Lactate 0.4 (0.4-2.0) mmol/L Calcium 8.1 L 9.3 (8.6-10.3) mg/dl Magnesium 2.2 2.0 (1.7-2.4) mg/dl Total Bilirubin 0.8 (0.2-1.0) mg/dl AST 20 (13-39) U/L ALT 10 (7-52) U/L Alkaline Phosphatase 73 (34-104) U/L Troponin I High Sens < 2.3 (0-14) pg/ml Total Protein 7.6 (6.0-8.3) gm/dl Albumin 4.6 (3.4-5.0) gm/dl Globulin 3.0 (2.5-4.0) gm/dl Albumin/Globulin Ratio 1.5 (0.9-2) Lipase 20 (11-82) U/L HCG, Qual Negative (Negative) Diagnostic Findings Exam(s): CT ABDOMEN + PELVIS With Contrast IV Amt: 93 cc opti 320 EXAM: CT Abdomen and Pelvis With Intravenous Contrast CLINICAL HISTORY: right side abdominal pain. TECHNIQUE: Axial computed tomography images of the abdomen and pelvis with intravenous contrast. CTDI is 9.03 mGy and DLP is 432.21 mGy-cm. Automated exposure control was utilized for the study. A dose lowering technique was utilized adhering to the principles of ALARA. CONTRAST: Patient received 93 cc opti 320 of IV contrast COMPARISON: No relevant prior studies available. FINDINGS: Lung bases: Unremarkable. No mass. No consolidation. ABDOMEN: Liver: Unremarkable. No mass. Gallbladder and bile ducts: Unremarkable. No calcified stones. No ductal dilation. Pancreas: Unremarkable. No mass. No ductal dilation. Spleen: Unremarkable. No splenomegaly. Adrenals: Unremarkable. No mass. Kidneys and ureters: Unremarkable. No solid mass. No hydronephrosis. Stomach and bowel: Abnormal fluid and gas dilated small bowel loops in the pelvis, with subtle kinking around the central location within the midline pelvis (series 2; images 62-65). Prominent stool burden in the right colon. Only mild stool burden in the left colon. PELVIS: Appendix: The appendix is normal in caliber posterior to the cecum. Bladder: Unremarkable. No mass. Reproductive: There are multiple adnexal cysts noted bilaterally. The largest adnexal cyst on the left measures 3.6 x 3.7 cm. ABDOMEN and PELVIS: Intraperitoneal space: Free fluid in the pelvis is noted. No loculation. No free air. Bones/joints: No acute fracture. No dislocation. Soft tissues: Unremarkable. Vasculature: There is long segment venous stents extending throughout the iliac arteries, into the IVC and a kissing fashion. There is also a stent from the infrarenal IVC through the kissing stents. The aorta and iliac arteries are patent. No abdominal aortic aneurysm. Lymph nodes: Unremarkable. No enlarged lymph nodes. IMPRESSION: 1. Abnormal fluid and gas dilated small bowel loops in the pelvis, with subtle kinking around the central location within the midline pelvis (series 2; images 62-65). The appearance is concerning for distal small bowel obstruction, presumably from adhesions or a potential internal hernia. No pneumatosis or pneumoperitoneum. 2. Free fluid in the pelvis is noted. No loculation. This is presumably reactive from the small bowel process. 3. There are multiple adnexal cysts noted bilaterally. The largest adnexal cyst on the left measures 3.6 x 3.7 cm. This is a presumed incidental finding. Dr. Britt and I personally reviewed ct scan images as well as reviewed with Radiologist Dr. Raymundo
[2025-04-19] MEDS: FERROUS SULFATE 325 MG TAB PO SCH (10:54)
[2025-04-19] MEDS: ASPIRIN 81 MG ECTAB PO SCH (10:55)
[2025-04-19] MEDS: SERTRALINE HCL 50 MG TABLET PO SCH (10:55)
[2025-04-19] MEDS: ENOXAPARIN INJ 40 MG/0.4 ML SYR SQ SCH (10:55)
[2025-04-19 10:57] LABS: Anion Gap 4.0 (3-11); Blood Urea Nitrogen 13.0 mg/dl (6-23); Calcium 8.1 mg/dl (8.6-10.3); Carbon Dioxide 23.0 mmol/L (21-32); Chloride 108.0 mmol/L (98-107); Creatinine Clr Calc Pharmacy 112.4 ml/min; Glucose 94.0 mg/dl (70-99(Fasting)); Magnesium 2.2 mg/dl (1.7-2.4); Sodium 135.0 mmol/L (136-145)
--- NOTE | 2025-04-19 11:25 | Communication Note ---
Date of Service: April 19, 2025 Patient seen and examined Reports low abd pain. No BM yet Currently denied nausea or vomiting CT concerning for SBO Continue conservative mgt with IVF, NPO, pain management Surg on board
[2025-04-19] MEDS: LACTATED RINGER'S 1,000 ML IV SCH (13:16)
[2025-04-19] MEDS: ACETAMINOPHEN 1,000 MG/100 ML VIAL IV PRN (13:17)
--- NOTE | 2025-04-20 04:50 | Electrocardiogram Report ---
Test Reason : Blood Pressure : */* mmHG Vent. Rate : 103 BPM Atrial Rate : 103 BPM P-R Int : 94 ms QRS Dur : 88 ms QT Int : 356 ms P-R-T Axes : 53 58 15 degrees QTcB Int : 466 ms Poor data quality, interpretation may be adversely affected Sinus tachycardia with short MO Otherwise normal ECG When compared with ECG of 04-Aug-2014 08:50, Nonspecific T wave abnormality now evident in Anterior leads Confirmed by Buck Ospina ([id number]) on 04/20/2025 4:50:29 AM Referred By: REFERRED SELF Confirmed By: Buck Ospina
[2025-04-20 06:32] LABS: Hematocrit (blood only) 33.1 % (37.0-47.0); Hemoglobin 10.8 g/dl (12.0-16.0); Mean Corpuscular Hemoglobin 30.1 pg (25.0-34.0); Mean Corpuscular Volume 92.2 fL (80.0-100.0); Platelet Count 228 K/uL (130-400); RDW Standard Deviation 41.6 fL (36.4-46.3); Red Blood Count 3.59 M/uL (4.20-5.40); White Blood Count 3.99 K/ul (4.8-10.8)
[2025-04-20 06:55] LABS: Anion Gap 10.0 (3-11); Blood Urea Nitrogen 12.0 mg/dl (6-23); Calcium 8.0 mg/dl (8.6-10.3); Carbon Dioxide 19.0 mmol/L (21-32); Chloride 108.0 mmol/L (98-107); Creatinine Clr Calc Pharmacy 137.4 ml/min; Glucose 61.0 mg/dl (70-99(Fasting)); Magnesium 1.8 mg/dl (1.7-2.4); Potassium 4.1 mmol/L (3.5-5.1); Sodium 137.0 mmol/L (136-145)
[2025-04-20] MEDS: D5W AND NSS 1,000 ML IV SCH (08:28)
--- NOTE | 2025-04-20 09:18 | Hospitalist Progress Note ---
Date of Service April 20, 2025 Assessment & Plan (1) SBO (small bowel obstruction): Plan: 49-year-old female with past medical history significant for anxiety history of DVT, history of IVC thrombosis, history of depression presents with abdominal pain since the previous evening and found to have bowel obstruction. Small bowel obstruction Abd CT noted SBO Has clinical improvement Discussed with Surgery team in the room. Started on clears per Surgery Will monitor tolerance Gallbladder sludge noted on Gallbladder USS Normal LFT Adnexal cyst Incidental finding on CT - multiple b/l adnexal cysts. 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 No severe pains any longer, just soreness No nausea or vomiting Had 2 BM yesterday No other complaints on ROS Physical Exam Constitutional: + well hydrated; no acute distress Eyes: PERRL, conjunctivae normal, anicteric sclerae ENMT: external ear and nose normal, oropharynx normal Respiratory: normal respiratory effort, lungs clear to auscultation Cardiovascular: Rate/Rhythm: regular rate and regular rhythm Gastrointestinal (Abdomen): Soft, mild tenderness, normal bowel sounds Musculoskeletal: no cyanosis or clubbing, extremities motor strength 5/5 Neurologic: PERRL, EOMI, accommodation nl, no face palsy, no dysarthria Psychiatric: A+Ox3, euthymic affect Results & Data Results & Data Vital Signs (Past 12 Hours) Vital Signs Temp Pulse Resp BP Pulse Ox O2 Del Method 04/20/25 07:52 37.0 C 94 H 18 103/65 95 Room Air Laboratory Results Abnormal lab results 04/20/25 Range/Units 05:45 WBC 3.99 L (4.8-10.8) K/ul RBC 3.59 L (4.20-5.40) M/uL Hgb 10.8 L (12.0-16.0) g/dl Hct 33.1 L (37.0-47.0) % Chloride 108 H (98-107) mmol/L Carbon Dioxide 19 L (21-32) mmol/L Creatinine 0.45 L (0.6-1.2) mg/dl BUN/Creatinine Ratio 26.7 H (10-20) Glucose 61 L (70-99(Fasting)) mg/dl Calcium 8.0 L (8.6-10.3) mg/dl
--- NOTE | 2025-04-20 10:16 | Surgery Progress Note ---
Date of Service April 20, 2025 Assessment & Plan (1) Abdominal pain: (2) SBO (small bowel obstruction): (3) History of DVT (deep vein thrombosis): Plan: 49 yo female with sudden onset of generalized abdominal pain increasing in severity with associated nausea. No prior abdominal surgery history. CT scan of abd/pelvis with IV contrast with differential of enteritis vs internal hernia causing SBO. CT scan personally reviewed with radiologist Dr. Raymundo. Ordered stat lactic acid which was normal at 0.4. 04/20/25 avss severe pain resolved passing gas and two small bowel movements yesterday still having pain on exam but slightly improved. Plan: clear liquids slowly SBFT high encouraged ambulation continue medical management Dr. Britt has seen and examined patient, discussed above with patient. Admission and Anticipated Discharge Date Admission Date: April 19, 2025 Subjective feeling better severe pain has resolved, still having soreness in lower abdomen two bowel movements yesterday, small formed pellet stools but passed gas after bowel movements none so far today No n,v urinating without difficulty ambulating hallway Physical Exam Constitutional: WD/WN, vitals as above cooperative and comfortable; no acute distress and not ill appearing Respiratory: normal respiratory effort; no respiratory distress Gastrointestinal (Abdomen): Inspection/Auscultation: abdomen normal to inspection and normal bowel sounds; abdomen not distended Percussion/Palpation: + abdomen tender (lower abdomen more so in suprapubic and LLQ) and abdomen soft; no guarding, abdomen not rigid and abdomen not firm Skin: no rashes, warm and dry Psychiatric: Orientation: alert and oriented x 3 Results & Data Vital Signs (Past 12 Hours) Vital Signs Temp Pulse Resp BP Pulse Ox O2 Del Method 04/20/25 07:52 37.0 C 94 H 18 103/65 95 Room Air Laboratory Results 04/20/25 04/19/25 04/19/25 Range/Units 05:45 11:02 09:54 WBC 3.99 L (4.8-10.8) K/ul RBC 3.59 L (4.20-5.40) M/uL Hgb 10.8 L (12.0-16.0) g/dl Hct 33.1 L (37.0-47.0) % MCV 92.2 (80.0-100.0) fL MCH 30.1 (25.0-34.0) pg MCHC 32.6 (32.0-36.0) g/dL RDW Std Deviation 41.6 (36.4-46.3) fL RDW Coeff of Lupe 12.2 (11.5-14.5) % Plt Count 228 (130-400) K/uL MPV 9.9 (9.4-12.4) fL Sodium 137 135 L (136-145) mmol/L Potassium 4.1 4.2 D (3.5-5.1) mmol/L Chloride 108 H 108 H (98-107) mmol/L Carbon Dioxide 19 L 23 (21-32) mmol/L Anion Gap 10 4 (3-11) BUN 12 13 (6-23) mg/dl Creatinine 0.45 L 0.55 L (0.6-1.2) mg/dl Est Cr Clr Drug Dosing 137.4 112.4 ml/min eGFR 119.33 113.70 BUN/Creatinine Ratio 26.7 H 23.6 H (10-20) Glucose 61 L 94 (70-99(Fasting)) mg/dl Lactate 0.4 (0.4-2.0) mmol/L Calcium 8.0 L 8.1 L (8.6-10.3) mg/dl Phosphorus 2.6 (2.5-4.9) mg/dl Magnesium 1.8 2.2 (1.7-2.4) mg/dl
[2025-04-21 08:52] LABS: Hematocrit (blood only) 33.3 % (37.0-47.0); Hemoglobin 11.3 g/dl (12.0-16.0); Mean Corpuscular Hemoglobin 30.5 pg (25.0-34.0); Mean Corpuscular Volume 90.0 fL (80.0-100.0); Platelet Count 228 K/uL (130-400); RDW Standard Deviation 40.4 fL (36.4-46.3); Red Blood Count 3.70 M/uL (4.20-5.40); White Blood Count 3.00 K/ul (4.8-10.8)
[2025-04-21 09:11] LABS: Anion Gap 5.0 (3-11); Blood Urea Nitrogen 4.0 mg/dl (6-23); Calcium 8.4 mg/dl (8.6-10.3); Carbon Dioxide 27.0 mmol/L (21-32); Chloride 109.0 mmol/L (98-107); Creatinine Clr Calc Pharmacy 118.9 ml/min; Glucose 99.0 mg/dl (70-99(Fasting)); Magnesium 1.7 mg/dl (1.7-2.4); Potassium 3.7 mmol/L (3.5-5.1); Sodium 141.0 mmol/L (136-145)
--- NOTE | 2025-04-21 12:18 | Surgery Progress Note ---
Date of Service April 21, 2025 Assessment & Plan (1) Enteritis: Plan: Resolving enteritis, less likely SBO No operative intervention indicated at this time Diet as tolerated Okay to discharge from general surgery standpoint Surgical sign off, call with questions or concerns Admission and Anticipated Discharge Date Admission Date: April 19, 2025 Subjective Admitted with enteritis versus partial small bowel obstruction in setting of no prior abdominal surgeries. She has had a loose bowel movement followed by solid bowel movement. She is tolerating her liquids and is awaiting regular diet. Feels much better than on admission Physical Exam Constitutional: WD/WN, vitals as above Gastrointestinal (Abdomen): normal bowel sounds, soft, nontender, no hepatosplenomegaly Results & Data Vital Signs (Past 12 Hours) Vital Signs Temp Pulse Resp BP Pulse Ox O2 Del Method 04/21/25 08:14 36.6 C 62 16 110/71 96 Room Air Laboratory Results Laboratory Results - last 24 hr 04/21/25 08:01 WBC 3.00 L RBC 3.70 L Hgb 11.3 L Hct 33.3 L MCV 90.0 MCH 30.5 MCHC 33.9 RDW Std Deviation 40.4 RDW Coeff of Lupe 12.2 Plt Count 228 MPV 10.3 Sodium 141 Potassium 3.7 Chloride 109 H Carbon Dioxide 27 Anion Gap 5 BUN 4 L Creatinine 0.52 L Est Cr Clr Drug Dosing 118.9 eGFR 115.25 BUN/Creatinine Ratio 7.7 L Glucose 99 Calcium 8.4 L Phosphorus 2.8 Magnesium 1.7 PG Care Time/CCT Total # of Minutes Spent Total Time Spent with Patient: Total time spent is greater than 50% in coordination of care (as documented) at patient's floor/unit and/or counseling patient: Coding Level of Care Code 33425 SUB INP/OBS CARE 2/35MIN Diagnoses Enteritis K52.9
--- NOTE | 2025-04-21 14:19 | Discharge Summary ---
Date of Service April 21, 2025 Admission HPI Per Admitting Provider 49-year-old female with past medical history significant for anxiety history of DVT, history of IVC thrombosis, history of depression presents with abdominal pain since yesterday evening and found to have bowel obstruction. Patient states since yesterday evening having severe abdominal pain all over the abdomen. Associated with nausea. Denies any vomiting. Last bowel movement was couple of days ago. But states passing gas. Denies any chest pain or shortness of breath. No cough. No fevers. No headache. No runny nose or sore throat. Micturating okay. Hemodynamics okay. Past medical history. As mentioned above Past surgical history. Colonoscopy. Breast implants. Social history. . Quit smoking 2012. Smokes 0.5 pack a day for 17 years. Alcohol once a week. No drug use. Family history. Paternal grandfather had diabetes. Hypertension. Father had heart disorder. Hypertension. Admission Exam Per Admitting Provider General- Not in distress Head- atraumatic Eyes- PERRL. ENT- oropharynx clear Neck- supple, no JVD. Lungs- clear to auscultation no wheezing or crackles Heart- regular rate and rhythm; no murmur, no gallop. Abdomen-sluggish bowel sounds, soft, diffuse tender, mild guarding, no distension. Extremities- no pretibial edema, no erythema seen. Neuro- alert, oriented PERRL, no facial palsy; no dysarthria; moves extremities Principal Diagnosis Small bowel obstruction Discharge Exam Constitutional + well hydrated; no acute distress Eyes PERRL, conjunctivae normal, anicteric sclerae ENMT external ear and nose normal, oropharynx normal Respiratory normal respiratory effort, lungs clear to auscultation Cardiovascular Rate/Rhythm: regular rate and regular rhythm Gastrointestinal (Abdomen) normal bowel sounds, soft, nontender, no hepatosplenomegaly Musculoskeletal no cyanosis or clubbing, extremities motor strength 5/5 Neurologic PERRL, EOMI, accommodation nl, no face palsy, no dysarthria Psychiatric A+Ox3, euthymic affect Discharge Data Allergies Allergy/AdvReac Type Severity Reaction Status Date / Time No Known Allergies Allergy Unknown Verified 04/18/25 22:57 Consultations 04/19/25 00:50 ED Decision to Admit Stat 04/19/25 09:25 Consult General Surgery Routine Ordered Studies 04/18/25 21:57 CT abd pelvis IV con only Stat US gallbladder Stat Hospital Course (1) SBO (small bowel obstruction): 49-year-old female with past medical history significant for anxiety history of DVT, history of IVC thrombosis, history of depression presents with abdominal pain since the previous evening and found to have bowel obstruction. Small bowel obstruction Abd CT noted SBO Gallbladder sludge noted on Gallbladder USS Normal LFT Patient was managed conservatively with bowel rest, IVF and pain control SBO resolved. Bowel function returned and tolerating regular diet Abdominal pain resolved Adnexal cyst Incidental finding on CT - multiple b/l adnexal cysts. 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 Was treated with 6 months course of Coumadin Currently on aspirin Total Time Total Time Spent Total Time Spent (In Minutes): 35 Total Time Includes: Examination of the Patient, Discharge Planning and Medication Reconciliation Discharge Plan Discharge Items Patient Disposition: Home - Self-Care Reason For Visit: Abdominal pain Discharge Diagnosis: Small bowel obstruction Condition on Discharge: Good Activity: Resume your previous activity Non-emergency contact: Primary Care Provider Call non-emergency contact if: you have any medication questions and your symptoms worsen Follow-up/Referrals: Herminia Turcios MD [Primary Care Provider] - Diet: Regular Addtl Attending Provider Instructions: Mrs Vigil You were hospitalized and managed for the small bowel obstruction. Please ensure follow up with your Primary Doctor It was a pleasure taking care of you Pending Studies at Discharge: No Stand-Alone Forms: My [facility], Smoking Cessation Medications and DC Order Prescriptions: Continued aspirin 81 mg Tablet,Delayed Release (Dr/Ec) 81 mg PO DAILY ferrous sulfate [iron] 325 mg (65 mg iron) Tablet 325 mg PO DAILY sertraline 50 mg Tablet 50 mg PO DAILY Probiotic 10 billion cell Capsule 10,000 mmu cells PO DAILY Discharge Orders: Discharge Order (Routine); Ordered 04/21/25 Ordered By: Gissell Villela/Other Patient Handouts: Small Bowel Obstruction, ED Gastroenteritis, Viral (Adult) Admission Data Admit Date/Time: 04/19/25 04:53 Attending Provider: Gissell Moody I. Admit Provider: Palepu,Dinesh P. Primary Care Provider: Herminia Turcios Other Providers: Dinesh Burgos; René Britt Other Interventions: Discharge Summary Assessment (RN) Last Done: 04/21/25 15:14
== END 2025-04-21 15:31 | disposition home or self-care (01) | DRG 390 ==
LOC: ED 21:45 → EDINP 04-19 04:53 → 3N 04-19 12:52